=== PATIENT | female | born 1975 | race African-American/Black ===

== ENCOUNTER 2021-12-01 11:27 | Emergency (ER) | payer BC ==
[~2021-12-01] VITALS: Ht 162.6 cm; Wt 63.0 kg
[2021-12-01 11:44] VITALS: BP 96/62
[2021-12-01] MEDS ORDERED: TETANUS, DIPHTHERIA, PERTUSSIS VAC/PF 0.5ML (>10YR OLD) IM ONE (13:30)
[2021-12-01] MEDS ORDERED: BACITRACIN ZINC OINT UDPKT TOP ONE (13:30)
[2021-12-01] MEDS ORDERED: LIDOCAINE HCL/PF 1% 10 MG/ML 5ML VIAL INFIL ONE (13:30)
[2021-12-01] MEDS ORDERED: T3 PO (15:31)
[2021-12-01] MEDS ORDERED: BO1 TP (15:31)
[2021-12-01] MEDS ORDERED: POLY1BAN TP (15:31)
== END 2021-12-01 15:29 | disposition home or self-care (01) ==
LOC: ER 11:27
DX: S91.201A Unspecified open wound of right great toe with damage to nail, initial encounter (principal); S90.411A Abrasion, right great toe, initial encounter; Z90.49 Acquired absence of other specified parts of digestive tract; W10.8XXA Fall (on) (from) other stairs and steps, initial encounter; Y93.89 Activity, other specified; Y92.018 Other place in single-family (private) house as the place of occurrence of the external cause
CPT/HCPCS: 90471; 90715; 99283; J3490